=== PATIENT | male | born 2000 | race African-American/Black ===

== ENCOUNTER 2022-05-07 15:35 | Emergency (ER) | payer MEDICAID, OTHER ==
[~2022-05-07] VITALS: Ht 182.9 cm; Wt 61.0 kg
[2022-05-07 16:11] VITALS: BP 112/69
[2022-05-07] MEDS ORDERED: IBUPROFEN 600MG TABLET PO ONE (16:45)
== END 2022-05-07 22:09 | disposition left against medical advice (07) ==
LOC: ER 15:35
DX: Z53.21 Procedure and treatment not carried out due to patient leaving prior to being seen by health care provider (principal); R07.89 Other chest pain
CPT/HCPCS: 93005; Z7610